=== PATIENT | male | born 1960 | race African-American/Black ===

== ENCOUNTER 2018-08-27 07:19 | Emergency (ER) | payer SELFPAY ==
[2018-08-27] MEDS ORDERED: ACETAMINOPHEN 325 MG TABLET PO ONE (07:36)
--- NOTE | 2018-08-27 07:39 | ER Document Report ---
ED Respiratory Problem - General Chief Complaint: Congestion Stated Complaint: COUGH/BACK PAIN Time Seen by Provider: 08/27/18 07:33 Mode of Arrival: Ambulatory Information source: Patient Notes: 58-year-old male presented to ED for complaint of cough cold congestion runny nose and back pain from the coughing. He is alert oriented respirations regular and unlabored speaking in full sentences walks with a even steady gait. - HPI Patient complains to provider of: Cough Onset: Other - Several days Duration: Continuous Initiating Event: URI, Other - Sniffing cocaine and smoking a pack a week Quality of pain: Achy Severity: Moderate Pain Level: 4 Context: Smoker Cough: Nonproductive Sputum amount: None Associated symptoms: Congestion, Cough, PND, Runny nose, Sinus pain/pressure Similar symptoms previously: Yes Recently seen / treated by doctor: No - Related Data Allergies/Adverse Reactions: No Known Allergies Allergy (Unverified 08/27/18 07:22) Past Medical History - General Information source: Patient - Social History Smoking Status: Current Some Day Smoker Cigarette use (# per day): Yes - Pack per week Smoking Education Provided: Yes - 4 minutes Frequency of alcohol use: Occasional Drug Abuse: None, Cocaine Occupation: Logging Lives with: Family Family History: Reviewed & Not Pertinent Patient has suicidal ideation: No Patient has homicidal ideation: No - Past Medical History Cardiac Medical History: Reports: None Pulmonary Medical History: Reports: None EENT Medical History: Reports: None Neurological Medical History: Reports: None Endocrine Medical History: Reports: None Renal/ Medical History: Reports: None Malignancy Medical History: Reports None GI Medical History: Reports: None Musculoskeletal Medical History: Reports None Skin Medical History: Reports None Psychiatric Medical History: Reports: None Traumatic Medical History: Reports: None Infectious Medical History: Reports: None Surgical Hx: Negative Past Surgical History: Reports: None Review of Systems - Review of Systems Constitutional: Recent illness EENT: Nose discharge, Sinus pressure, Sinus discharge Cardiovascular: No symptoms reported Respiratory: Cough Gastrointestinal: No symptoms reported Musculoskeletal: Back pain - Upper back states the pain is worse with cough Skin: No symptoms reported Hematologic/Lymphatic: No symptoms reported Neurological/Psychological: No symptoms reported -: Yes All other systems reviewed and negative Physical Exam - Vital signs Vitals: Temp Pulse Resp BP Pulse Ox 98.6 F 96 16 153/98 H 96 08/27/18 07:23 08/27/18 07:23 08/27/18 07:23 08/27/18 07:23 08/27/18 07:23 Interpretation: Normal - General General appearance: Appears well, Alert - HEENT Head: Normocephalic, Atraumatic Eyes: Normal Pupils: PERRL Ears: Normal External canal: Normal Tympanic membrane: Normal Sinus: Normal Nasal: Purulent discharge, Swelling, Other - White powder Mouth/Lips: Normal Mucous membranes: Normal Pharynx: Post nasal drainage Neck: Normal - Respiratory Respiratory status: No respiratory distress Chest status: Nontender Breath sounds: Nonproductive cough Chest palpation: Normal - Cardiovascular Rhythm: Regular Heart sounds: Normal auscultation Murmur: No - Abdominal Inspection: Normal Distension: No distension Bowel sounds: Normal Tenderness: Nontender Organomegaly: No organomegaly - Back Back: Normal, Nontender - Extremities General upper extremity: Normal inspection, Nontender, Normal color, Normal ROM, Normal temperature General lower extremity: Normal inspection, Nontender, Normal color, Normal ROM, Normal temperature, Normal weight bearing. No: Ramón's sign - Neurological Neuro grossly intact: Yes Cognition: Normal Orientation: AAOx4 Kimberley Coma Scale Eye Opening: Spontaneous Kimberley Coma Scale Verbal: Oriented Liberty Coma Scale Motor: Obeys Commands Liberty Coma Scale Total: 15 Speech: Normal Motor strength normal: LUE, RUE, LLE, RLE Sensory: Normal - Psychological Associated symptoms: Normal affect, Normal mood - Skin Skin Temperature: Warm Skin Moisture: Dry Skin Color: Normal Course - Re-evaluation Re-evalutation: 08/27/18 10:23 Chest x-ray negative assessment consistent with an upper respiratory infection. He states the back hurts from coughing. Patient was given instructions on upper respiratory infection stopped smoking decrease in his use of cocaine increase in his fluids taking his blood pressure medicines as prescribed and following up with his primary doctor. Patient is able to verbalize understanding and agreement with treatment plan After performing a Medical Screening Examination, I estimate there is LOW risk for ACUTE CORONARY SYNDROME, RESPIRATORY FAILURE, SEPSIS OR MENINGITIS, thus I consider the discharge disposition reasonable. I have reevaluated this patient multiple times and no significant life threatening changes are noted. The patient and I have discussed the diagnosis and risks, and we agree with discharging home with close follow-up. We also discussed returning to the Emergency Department immediately if new or worsening symptoms occur. We have discussed the symptoms which are most concerning (e.g., changing or worsening pain, trouble swallowing or breathing, neck stiffness, fever) that necessitate immediate return. - Vital Signs Vital signs: Temp Pulse Resp BP Pulse Ox 99.0 F 100 20 153/100 H 100 08/27/18 08:33 08/27/18 08:33 08/27/18 08:33 08/27/18 08:33 08/27/18 08:33 - Diagnostic Test Radiology reviewed: Image reviewed, Reports reviewed Discharge - Discharge Clinical Impression: URI (upper respiratory infection) Qualifiers: URI type: unspecified URI Qualified Code(s): J06.9 - Acute upper respiratory infection, unspecified Condition: Stable Disposition: HOME, SELF-CARE Additional Instructions: UPPER RESPIRATORY ILLNESS: You have a viral infection of the respiratory passages -- a "cold." This common infection causes nasal congestion, drainage, and often sore throat and cough. It is highly contagious. The disease usually lasts about 10 to 14 days. There is no "cure" for the viral infection -- it must run its course. If there is a complication, such as bacterial infection in the nose, sinuses, middle ear, or bronchial tubes, antibiotics may be required. The antibiotics won't affect the virus. Drink plenty of fluids. A humidifier may help. An expectorant medication or decongestant may make you more comfortable. Use acetaminophen or ibuprofen for fever or aches. See the doctor if fever persists over two days, if there is any significant worsening of your symptoms, or if you simply fail to improve as expected. COUGH-SUPPRESSANT & EXPECTORANT MEDICATION: You are to use a cough medication as needed for relief of symptoms. This medicine is a combination of an expectorant (to make the mucous thinner and more easily "coughed up") and a cough suppressant (to reduce the frequency of coughing). The cough-suppressant medicine is related to narcotics. You may experience mild nausea and sleepiness. Some patients who are very sensitive to narcotics may have stomach pain from this medicine. Taking the medicine with food reduces these side effects. Do not drive or work with machinery until you know how this medicine affects you. The expectorant should have no side effects. Iodine-containing expectorants (such as organidin) should not be taken by persons with active thyroid disease unless approved by your doctor. Call the doctor if you develop shortness of breath, hives, rash, itching, lightheadedness, or severe nausea and vomiting. USE OF ACETAMINOPHEN (Tylenol): Acetaminophen may be taken for pain relief or fever control. It's much safer than aspirin, offering a wider range of "safe" dosages. It is safe during . Some brand names are Tylenol, Panadol, Datril, Anacin 3, Tempra, and Liquiprin. Acetaminophen can be repeated every four hours. The following are maximum recommended dosages: >89 pounds or adults 650 mg to 900 mg Acetaminophen can be repeated every four hours. Maximum dose not to exceed 4000 mg a day. SMOKING: If you smoke, you should stop smoking. The tar and chemicals in cigarette smoke are harmful. Smoking has been shown to cause: emphysema chronic bronchitis lung cancer mouth and throat cancer stomach and pancreas cancer premature aging defects In addition, smoking increases ear and lung infections in children of smokers. FOLLOW-UP CARE: If you have been referred to a physician for follow-up care, call the physicians office for an appointment as you were instructed or within the next two days. If you experience worsening or a significant change in your symptoms, notify the physician immediately or return to the Emergency Department at any time for re-evaluation. Prescriptions: Benzonatate [Tessalon Perle 100 mg Capsule] 100 mg PO Q8HP PRN #14 cap PRN Reason: Forms: Elevated Blood Pressure, Smoking Cessation Education, Return to Work Referrals: LOCALMD,NO [NO LOCAL MD] - Follow up as needed
--- NOTE | 2018-08-27 08:13 | RADIOLOGY REPORT (SQ) ---
EXAM DESCRIPTION: CHEST 2 VIEWS COMPLETED DATE/TIME: 08/27/2018 7:55 am REASON FOR STUDY: cough cold congestion COMPARISON: None. EXAM PARAMETERS: NUMBER OF VIEWS: two views TECHNIQUE: Digital Frontal and Lateral radiographic views of the chest acquired. RADIATION DOSE: NA LIMITATIONS: none FINDINGS: LUNGS AND PLEURA: No opacities, masses or pneumothorax. No pleural effusion. MEDIASTINUM AND HILAR STRUCTURES: No masses or contour abnormalities. HEART AND VASCULAR STRUCTURES: Heart normal size. No evidence for failure. BONES: No acute findings. HARDWARE: None in the chest. OTHER: No other significant finding. IMPRESSION: NO ACUTE RADIOGRAPHIC FINDING IN THE CHEST. TECHNICAL DOCUMENTATION: JOB ID: [id number] [employer]- All Rights Reserved Reading location - IP/workstation name: [email or web address]
[2018-08-27] MEDS ORDERED: BENZONATATE 100 MG CAPSULE PO ONE (08:24)
[2018-08-27 08:39] VITALS: BP 153/100
== END 2018-08-27 08:39 | disposition home or self-care (01) ==
LOC: ER 07:19
DX: J06.9 Acute upper respiratory infection, unspecified (principal); M54.9 Dorsalgia, unspecified; F17.210 Nicotine dependence, cigarettes, uncomplicated
CPT/HCPCS: 71046; 99283; 99406